=== PATIENT | male | born 1990 | race Caucasian/White ===

== ENCOUNTER 2020-04-18 10:45 | Emergency (ER) | payer OTHER ==
[2020-04-18 10:50] VITALS: BP 146/101; PULSE 96; RESP 18; TEMP 98.5
[2020-04-18] MEDS ORDERED: IBUPROFEN 600 MG STARTER PACK 4 TAB BTL PO STA (11:01)
[2020-04-18] MEDS ORDERED: AMOXIC-POT CLAV 875MG STARTER PACK 2 TAB BTL PO STA (11:01)
--- NOTE | 2020-04-18 11:09 | ED ---
ENT HPI - General Source: patient, RN notes reviewed, old records reviewed Mode of arrival: ambulatory Limitations: no limitations <Debbie Morillo - Last Filed: 04/18/20 11:04> <Cady White - Last Filed: 04/20/20 01:32> - General Chief complaint: Dental/Oral Stated complaint: dental pain Time Seen by Provider: 04/18/20 10:54 - History of Present Illness Initial comments: Patient is a 30-year-old male who presents emergency department today for complaint of right lower dental pain for the past 4 days. Has multiple dental caries. Patient states that he has an upcoming foot with a dentist within the next 2 weeks. Patient states that he has been taking Motrin and doing mouth rinses for pain relief. Patient states that he's had no fevers or chills. Denies trismus. Denies any palpable mass over the jaw or teeth. (Debbie Morillo) - Related Data Previous Rx's Medication Instructions Recorded HYDROcodone/APAP 5-325MG [[place] 5] 1 each PO Q4HR PRN #20 tab 06/25/15 Naproxen [Naprosyn] 500 mg PO Q12HR #24 tab 06/25/15 Penicillin V Potassium [Pen Vee K] 500 mg PO QID #40 tab 06/25/15 Amoxic-Pot Clav 875-125Mg 1 tab PO Q12HR #20 tablet 04/18/20 [Augmentin 875-125] Ibuprofen [Motrin] 800 mg PO Q8H #20 tab 04/18/20 Allergies Allergy/AdvReac Type Severity Reaction Status Date / Time No Known Allergies Allergy Verified 04/18/20 10:50 Review of Systems ROS Other: All systems not noted in ROS Statement are negative. <Debbie Morillo - Last Filed: 04/18/20 11:04> ROS Other: All systems not noted in ROS Statement are negative. <Cady White - Last Filed: 04/20/20 01:32> ROS Statement: Those systems with pertinent positive or pertinent negative responses have been documented in the HPI. Past Medical History Past Medical History: No Reported History Additional Past Medical History / Comment(s): seasonal allergies History of Any Multi-Drug Resistant Organisms: None Reported Past Surgical History: No Surgical Hx Reported Past Psychological History: No Psychological Hx Reported Smoking Status: Current every day smoker Past Alcohol Use History: None Reported Past Drug Use History: Marijuana <MonicaDebbie arnold - Last Filed: 04/18/20 11:04> General Exam Limitations: no limitations General appearance: alert, in no apparent distress Head exam: Present: atraumatic, normocephalic, normal inspection Eye exam: Present: normal appearance, PERRL, EOMI. Absent: scleral icterus, conjunctival injection, periorbital swelling ENT exam: Present: normal exam, mucous membranes moist, other (Patient has poor dentition and evidence of multiple dental caries in the right lower jaw broken teeth.) Neck exam: Present: normal inspection. Absent: tenderness, meningismus, lymphadenopathy Respiratory exam: Present: normal lung sounds bilaterally. Absent: respiratory distress, wheezes, rales, rhonchi, stridor Cardiovascular Exam: Present: regular rate, normal rhythm, normal heart sounds. Absent: systolic murmur, diastolic murmur, rubs, gallop, clicks <ClaudyginnyAnitaDebbie - Last Filed: 04/18/20 11:04> - General Exam Comments Initial Comments: 30-year-old male. Oriented. No distress (Debbie Morillo) Course Vital Signs 04/18/20 10:48 Temperature 98.5 F Pulse Rate 96 Respiratory 18 Rate Blood Pressure 146/101 O2 Sat by Pulse 99 Oximetry Medical Decision Making <Debbie Morillo - Last Filed: 04/18/20 11:04> <Cady White - Last Filed: 04/20/20 01:32> - Medical Decision Making 30-year-old male presents return to the right lower jaw dental pain for the past 4 days. If this time Patient has multiple dental caries and broken teeth. No palpable abscess or drainable abscess at this time. Patient will be started on antibiotics and given starter pack emergency arm. Given a referral for dental clinic. (Debbie Morillo) I was available for consultation in the emergency department. The history and physical exam were done by the midlevel provider. I was not consulted for this patients care. Chart was dictated using [employer] dictation software. Attempts were made to correct any dictation errors however some typographical errors may persist. Patient was seen during a national state of emergency due to the Covid-19 pandemic. (Cady White) Disposition Is patient prescribed a controlled substance at d/c from ED?: No Time of Disposition: 11:08 <Debbie Morillo - Last Filed: 04/18/20 11:04> <Cady White - Last Filed: 04/20/20 01:32> Clinical Impression: Pain, dental Disposition: HOME SELF-CARE Instructions (If sedation given, give patient instructions): Dental Abscess (ED), Toothache (ED) Additional Instructions: [facility] [address] [place] [address] [phone] (existing clients only) For new clients: [phone] 1st consult: $50 (includes Xrays) Usually 30% less then private dentist for visits after. [employer] Have to pay $50 for Xrays anmd rest is covered. [phone] Prescriptions: Amoxic-Pot Clav 875-125Mg [Augmentin 875-125] 1 tab PO Q12HR #20 tablet Ibuprofen [Motrin] 800 mg PO Q8H #20 tab Referrals: None,Stated [Primary Care Provider] - 1-2 days
== END 2020-04-18 11:17 | disposition home or self-care (01) ==
LOC: EC 10:45
DX: K02.9 Dental caries, unspecified (principal); S02.5XXA Fracture of tooth (traumatic), initial encounter for closed fracture; F17.200 Nicotine dependence, unspecified, uncomplicated; X58.XXXA Exposure to other specified factors, initial encounter
CPT/HCPCS: 99283